=== PATIENT | male | born 1950 | race American Indian/Alaskan Native ===

== ENCOUNTER 2019-09-06 22:16 | Emergency (ER) | payer OTHER, MEDICARE ==
[2019-09-06] MEDS ORDERED: ASPIRIN 325 MG TAB PO ONE (22:37)
--- NOTE | 2019-09-06 23:25 | XRay Report ---
CHEST 2 VIEWS INDICATION / CLINICAL INFORMATION: Chest Pain. COMPARISON: None available. FINDINGS: SUPPORT DEVICES: None. HEART / MEDIASTINUM: No significant abnormality. LUNGS / PLEURA: No significant pulmonary or pleural abnormality. No pneumothorax. ADDITIONAL FINDINGS: No significant additional findings. IMPRESSION: 1. No significant abnormality. Signer Name: Caity Hunt MD Signed: 09/06/2019 11:20 PM Workstation Name: [id number]
[2019-09-06 23:38] LABS: Basophils % (Auto) 0.2 % (0.0-1.8); Eosinophils % (Auto) 0.1 % (0.0-4.3); Lymphocytes # (Auto) 1.7 K/mm3 (1.2-5.4); Lymphocytes % (Auto) 10.4 % (13.4-35.0); Mean Corpuscular HGB Conc 33 % (32-34); Mean Corpuscular Volume 85 fl (84-94); Monocytes # (Auto) 0.9 K/mm3 (0.0-0.8); Monocytes % (Auto) 5.9 % (0.0-7.3); Platelet Count 254 K/mm3 (140-440); Red Blood Count 5.28 M/mm3 (3.65-5.03); Red Cell Distribution Width 14.9 % (13.2-15.2)
[2019-09-06 23:50] LABS: BUN/Creatinine Ratio 18; Blood Urea Nitrogen 27 mg/dL (9-20); Calcium 9.5 mg/dL (8.4-10.2); Hemolysis Index 58
[2019-09-07] MEDS ORDERED: ACETAMINOPHEN 325 MG TAB ONE (00:40)
--- NOTE | 2019-09-07 01:22 | Emergency Department Report ---
ED General Adult HPI - General Chief complaint: Chest Pain Stated complaint: HEARTBURN, DIARRHEA Time Seen by Provider: 09/07/19 01:06 Source: EMS Mode of arrival: Ambulatory Limitations: No Limitations - History of Present Illness Initial comments: Patient is a 68-year-old male that presents emergency room for chest pain, diarrhea, abdominal pain and syncope. Patient states his chest pain started 4 days ago. Patient states his chest pain is a 3 out of 10. Patient states his chest pain is better with rest and worse with exertion. Patient states he is also having dyspnea on exertion. Patient denies shortness of breath at rest. Patient states he is only short of breath with exertion. Patient states his chest pain is intermittent. Patient states he is not having any chest pain at this time. Patient states this morning he had multiple bouts of diarrhea. Patient states he had a syncopal episode that was unwitnessed. Patient states he could became lightheaded and warm and fell to the ground. Patient denies headache. Patient states he did not hit his head. Patient states he was able to get to the ground prior to passing out. Patient states that he had some heartburn earlier today. Patient states heartburn has resolved. Patient states his abdominal pain is in the left upper quadrant. Patient states his abdominal pain is a 4 out of 10. Patient states is improving. Patient states his pain is better with rest and worse with palpation and movement. Patient denies nausea vomiting. -: Sudden Severity scale (0 -10): 5 Improves with: other Worsens with: other Associated Symptoms: chest pain, diaphoresis, shortness of breath, syncope. denies: confusion, cough, fever/chills, headaches, loss of appetite, malaise, nausea/vomiting, rash, seizure, weakness Treatments Prior to Arrival: none - Related Data Allergies Allergy/AdvReac Type Severity Reaction Status Date / Time No Known Allergies Allergy Unverified 09/06/19 22:32 ED Review of Systems ROS: Stated complaint: HEARTBURN, DIARRHEA Other details as noted in HPI Constitutional: denies: chills, fever Eyes: denies: eye pain, eye discharge, vision change ENT: denies: ear pain, throat pain Respiratory: SOB with exertion. denies: cough, wheezing Cardiovascular: denies: chest pain, palpitations Endocrine: no symptoms reported Gastrointestinal: denies: abdominal pain, nausea, diarrhea Genitourinary: denies: urgency, dysuria Musculoskeletal: denies: back pain, joint swelling, arthralgia Skin: denies: rash, lesions Neurological: denies: headache, weakness, paresthesias Psychiatric: denies: anxiety, depression Hematological/Lymphatic: denies: easy bleeding, easy bruising ED Past Medical Hx - Past Medical History Hx Hypertension: Yes Hx Diabetes: Yes - Social History Smoking Status: Never Smoker Substance Use Type: Alcohol ED Physical Exam - General Limitations: No Limitations General appearance: alert, in no apparent distress - Head Head exam: Present: atraumatic, normocephalic - Eye Eye exam: Present: normal appearance - ENT ENT exam: Present: mucous membranes moist - Neck Neck exam: Present: normal inspection - Respiratory Respiratory exam: Present: normal lung sounds bilaterally. Absent: respiratory distress, wheezes, rales - Cardiovascular Cardiovascular Exam: Present: regular rate, normal rhythm. Absent: systolic murmur, diastolic murmur, rubs, gallop - GI/Abdominal GI/Abdominal exam: Present: soft, tenderness (Left upper quadrant), normal bowel sounds. Absent: distended, guarding - Rectal Rectal exam: Present: deferred - Extremities Exam Extremities exam: Present: normal inspection - Back Exam Back exam: Present: normal inspection - Neurological Exam Neurological exam: Present: alert, oriented X3 - Psychiatric Psychiatric exam: Present: normal affect, normal mood - Skin Skin exam: Present: warm, dry, intact, normal color. Absent: rash ED Course Vital Signs 09/06/19 09/07/19 09/07/19 22:36 00:37 00:42 Temperature 98.7 F Pulse Rate 111 H Respiratory 18 19 Rate Blood Pressure 120/80 139/96 Blood Pressure [Right] O2 Sat by Pulse 98 100 99 Oximetry 09/07/19 09/07/19 09/07/19 00:46 00:49 01:00 Temperature Pulse Rate 109 H 91 H 105 H Respiratory 21 16 15 Rate Blood Pressure 139/96 139/96 Blood Pressure 138/96 [Right] O2 Sat by Pulse 99 100 99 Oximetry 09/07/19 09/07/19 09/07/19 01:16 01:30 01:46 Temperature Pulse Rate 93 H 91 H 88 Respiratory 15 11 L 12 Rate Blood Pressure 139/96 139/96 139/96 Blood Pressure [Right] O2 Sat by Pulse 100 99 99 Oximetry 09/07/19 09/07/19 09/07/19 02:00 02:16 02:30 Temperature Pulse Rate 90 89 Respiratory 17 16 Rate Blood Pressure 139/96 131/86 131/86 Blood Pressure [Right] O2 Sat by Pulse 84 99 99 Oximetry 09/07/19 09/07/19 09/07/19 03:06 03:16 03:31 Temperature Pulse Rate 80 81 Respiratory 15 15 Rate Blood Pressure 119/86 119/86 131/86 Blood Pressure [Right] O2 Sat by Pulse 89 100 98 Oximetry 09/07/19 09/07/19 03:45 04:01 Temperature Pulse Rate 80 77 Respiratory 17 14 Rate Blood Pressure 119/86 119/86 Blood Pressure [Right] O2 Sat by Pulse 98 98 Oximetry - Reevaluation(s) Reevaluation #1: I discussed all results and clinical findings with patient. I discussed plan of care with patient. Patient agrees with plan of care. Patient is stable for transfer. Patient will be transferred to [facility] via EMS. 09/07/19 05:02 - Consultations Consultation #1: Luigi on-call paged to discuss the patient's case for possible transfer or admission here. 09/07/19 04:24 I discussed case with Dr. Mcfarlane with [facility]. Dr. Mcfarlane states that Dr. Braxton will be accepting physician at [facility]. Patient will be transferred via EMS to [facility]. 09/07/19 05:01 ED Medical Decision Making - Lab Data Result diagrams: 09/06/19 23:01 09/06/19 23:01 - EKG Data -: EKG Interpreted by [facility] EKG shows normal: sinus rhythm, axis, intervals, QRS complexes, ST-T waves Rate: normal - Radiology Data Radiology results: report reviewed, image reviewed interpreted by me: CHEST 2 VIEWS INDICATION / CLINICAL INFORMATION: Chest Pain. COMPARISON: None available. FINDINGS: SUPPORT DEVICES: None. HEART / MEDIASTINUM: No significant abnormality. LUNGS / PLEURA: No significant pulmonary or pleural abnormality. No pneumothorax. ADDITIONAL FINDINGS: No significant additional findings. IMPRESSION: 1. No significant abnormality. CT head/brain wo con INDICATION / CLINICAL INFORMATION: Pt complains of a Syncopal Episode.. TECHNIQUE: Axial CT imaging of the brain was obtained without contrast. Coronal and sagittal reformatted imaging obtained and reviewed. All CT scans at this location are performed using CT dose reduction for ALARA by means of automated exposure control. COMPARISON: None available. FINDINGS: No intracranial hemorrhage, mass, or midline shift noted. No extra-axial fluid collection or suggestion of acute CVA. Ventricular system and basilar cisterns are unremarkable. Mild atrophy, age appropriate. Mild microvascular angiopathic changes are noted. Visualized paranasal sinuses and mastoid air cells are well aerated and clear. No calvarial abnormality. IMPRESSION: 1. No acute intracranial abnormality. CTA CHEST WITH IV CONTRAST INDICATION / CLINICAL INFORMATION: P.E. PROTOCOL!!! Pt complains of chest pain. Syncopal episode Omnipaque 350 / 100ml's was used for this exam.. TECHNIQUE: Axial CT images were obtained through the chest after injection of 100 mL IV contrast. 3 plane MIP and/or 3D reconstructions were produced. All CT scans at this location are performed using CT dose reduction for ALARA by means of automated exposure control. COMPARISON: Chest radiograph, 09/06/2019 FINDINGS: PULMONARY ARTERIES: No pulmonary emboli. THORACIC AORTA: No significant abnormality. No evidence of aneurysm or dissection. HEART: No significant abnormality. CORONARY ARTERIES: No significant calcification. PLEURA: No pleural effusion. No pneumothorax. LYMPH NODES: No significant adenopathy. LUNGS: No acute air space or interstitial disease. Both lungs are clear. ADDITIONAL FINDINGS: None. UPPER ABDOMEN: Mild hepatic steatosis. SKELETAL STRUCTURES: Mild diffuse spondylytic change. IMPRESSION: 1. No CT evidence for pulmonary embolism. 2. Both lungs are well aerated and clear. CT abdomen pelvis w con INDICATION / CLINICAL INFORMATION: Pt complains of abdominal pain Omnipaque 350 / 100ml's was used for this exam.. TECHNIQUE: Axial CT imaging of abdomen and pelvis was obtained with IV contrast. Coronal and sagittal reformatted imaging obtained and reviewed. All CT scans at this location are performed using CT dose reduction for ALARA by means of automated exposure control. COMPARISON: None available. FINDINGS: CT abdomen with contrast demonstrates mild hepatic steatosis. The liver is otherwise normal. Spleen, pancreas, kidneys, and adrenal glands are all unremarkable. Gallbladder is grossly normal. No biliary dilatation. Abdominal aorta is unremarkable. No evidence of aneurysm. Small para umbilical hernia containing only fat. CT pelvis with contrast shows moderately enlarged prostate gland. There is mild diverticulosis but no evidence of diverticulitis. Normal appendix is present. GI tract is unremarkable. No pelvic mass, free fluid, or focal inflammatory changes noted. Review of osseous structures shows multilevel degenerative disc disease and spondylitic change. IMPRESSION: 1. No acute finding within the abdomen or pelvis. 2. Mild hepatic steatosis. 3. Mild sigmoid diverticulosis without evidence for diverticulitis. 4. Mildly enlarged prostate gland. 5. Small paraumbilical hernia containing only fat. - Medical Decision Making Patient is a 68-year-old male that presents emergency room with multiple complaints. Patient complaints include syncope, chest pain, heartburn, abdominal pain, diarrhea and dyspnea on exertion. Patient had labs done. Patient's labs show an elevated BUN. Patient was given IV fluids. Had a chest. Patient had EKG done which showed no acute finding. Patient was found to be tachycardic. Patient had a CTA of the lung secondary to tachycardia and syncope. Patient had a CT of the head secondary to syncope. Patient had a CT abdomen due to his complaints of abdominal pain. Patient had a CTA of the lungs which is negative for PE. Patient had a CT of the head which was negative for acute findings. Patient had a CT of the abdomen which was negative for acute findings. Patient is a [facility] patient. I discussed case with transfer center of [facility], Dr. Mcfarlane and Dr. Mcfarlane states that the patient has been accepted to [facility] by Dr. Braxton. Patient will be transferred via EMS. Patient agrees with transfer. Patient stable for transfer. - Differential Diagnosis Abdominal pain, chest pain, MCCOY, ACS, syncope, dehydration Critical Care Time: Yes Critical care time in (mins) excluding proc time.: 35 Critical care attestation.: If time is entered above; I have spent that time in minutes in the direct care of this critically ill patient, excluding procedure time. Critical Care Time: 35 minutes ED Disposition Clinical Impression: MCCOY (dyspnea on exertion), Dehydration Chest pain Qualifiers: Chest pain type: unspecified Qualified Code(s): R07.9 - Chest pain, unspecified Syncope Qualifiers: Syncope type: unspecified Qualified Code(s): R55 - Syncope and collapse Elevated WBC count Qualifiers: Leukocytosis type: unspecified Qualified Code(s): D72.829 - Elevated white blood cell count, unspecified Disposition: DC/TX-70 ANOTHER TYPE HLTHCARE Is pt being admited?: No Does the pt Need Aspirin: No Condition: Critical Time of Disposition: 05:03
[2019-09-07] MEDS ORDERED: SODIUM CHLORIDE 0.9% 1000 ML 1,000 ML IV ONE (01:23)
--- NOTE | 2019-09-07 03:34 | Cat Scan Report ---
CT head/brain wo con INDICATION / CLINICAL INFORMATION: Pt complains of a Syncopal Episode.. TECHNIQUE: Axial CT imaging of the brain was obtained without contrast. Coronal and sagittal reformatted imaging obtained and reviewed. All CT scans at this location are performed using CT dose reduction for ALAR A by means of automated exposure control. COMPARISON: None available. FINDINGS: No intracranial hemorrhage, mass, or midline shift noted. No extra-axial fluid collection or suggesti on of acute CVA. Ventricular system and basilar cisterns are unremarkable. Mild atrophy, age appropriate. Mild microvascular angiopathic changes are noted. Visualized paranasal sinuses and mastoid air cells are well aerated and clear. No calvarial abnormali ty. IMPRESSION: 1. No acute intracranial abnormality. Signer Name: Caity Hunt MD Signed: 09/07/2019 3:30 AM Workstation Name: [id number]
--- NOTE | 2019-09-07 03:40 | Cat Scan Report ---
CT abdomen pelvis w con INDICATION / CLINICAL INFORMATION: Pt complains of abdominal pain Omnipaque 350 / 100ml's was used for this exam.. TECHNIQUE: Axial CT imaging of abdomen and pelvis was obtained with IV contrast. Coronal and sagittal reformatte d imaging obtained and reviewed. All CT scans at this location are performed using CT dose reduction for ALARA by means of automated exposure control. COMPARISON: None available. FINDINGS: CT abdomen with contrast demonstrates mild hepatic steatosis. The liver is otherwise normal. Spleen, pancreas, kidneys, and adrenal glands are all unremarkable. Gallbladder is grossly normal. No biliary dilatation. Abdominal aorta is unremarkable. No evidence of aneurysm. Small para umbilical hernia co ntaining only fat. CT pelvis with contrast shows moderately enlarged prostate gland. There is mild diverticulosis but no evidence of diverticulitis. Normal appendix is present. GI tract is unremarkable. No pelvic mass, free fluid, or focal inflammatory changes noted. Review of osseous structures shows multilevel degenerative disc disease and spondylitic change. IMPRESSION: 1. No acute finding within the abdomen or pelvis. 2. Mild hepatic steatosis. 3. Mild sigmoid diverticulosis without evidence for diverticulitis. 4. Mildly enlarged prostate gland. 5. Small paraumbilical hernia containing only fat. Signer Name: Caity Hunt MD Signed: 09/07/2019 3:36 AM Workstation Name: [id number]
--- NOTE | 2019-09-07 03:43 | Cat Scan Report ---
CTA CHEST WITH IV CONTRAST INDICATION / CLINICAL INFORMATION: P.E. PROTOCOL!!! Pt complains of chest pain. Syncopal episode Omnipaque 350 / 100ml's was used for this exam.. TECHNIQUE: Axial CT images were obtained through the chest after injection of 100 mL IV contrast. 3 plane MIP an d/or 3D reconstructions were produced. All CT scans at this location are performed using CT dose redu ction for [facility] by means of automated exposure control. COMPARISON: Chest radiograph, 09/06/2019 FINDINGS: PULMONARY ARTERIES: No pulmonary emboli. THORACIC AORTA: No significant abnormality. No evidence of aneurysm or dissection. HEART: No significant abnormality. CORONARY ARTERIES: No significant calcification. PLEURA: No pleural effusion. No pneumothorax. LYMPH NODES: No significant adenopathy. LUNGS: No acute air space or interstitial disease. Both lungs are clear. ADDITIONAL FINDINGS: None. UPPER ABDOMEN: Mild hepatic steatosis. SKELETAL STRUCTURES: Mild diffuse spondylytic change. IMPRESSION: 1. No CT evidence for pulmonary embolism. 2. Both lungs are well aerated and clear. Signer Name: Caity Hunt MD Signed: 09/07/2019 3:39 AM Workstation Name: [id number]
[2019-09-07 06:26] LABS: Amphetamine Screen,Urine PRESUMPTIVE NEGATIVE; Benzodiazepines Screen,Urine PRESUMPTIVE NEGATIVE; Cannabinoid Screen,Urine PRESUMPTIVE NEGATIVE; Cocaine Screen,Urine PRESUMPTIVE NEGATIVE; Methadone Screen,Urine PRESUMPTIVE NEGATIVE; Opiate Screen,Urine PRESUMPTIVE NEGATIVE
[2019-09-07 07:22] VITALS: BP 125/71
== END 2019-09-07 08:11 | disposition other institution (70) ==
LOC: ED 22:16
DX: R07.89 Other chest pain (principal); R06.00 Dyspnea, unspecified; E86.0 Dehydration; R55 Syncope and collapse; D72.829 Elevated white blood cell count, unspecified; I10 Essential (primary) hypertension; E11.9 Type 2 diabetes mellitus without complications
CPT/HCPCS: 36415; 70450; 71046; 71275; 74177; 80048; 80307; 84484; 85025; 93005; 96360; 96361; 99285; J7030; Q9967